=== PATIENT | female | born 1980 | race American Indian/Alaskan Native ===

== ENCOUNTER 2018-01-27 12:51 | Emergency (ER) | payer OTHER ==
--- NOTE | 2018-01-27 13:11 | EDM.PDOCBH ---
ED HPI GENERAL MEDICAL PROBLEM - General Chief Complaint: Behavioral/Psych Stated Complaint: [facility] Time Seen by Provider: 01/27/18 13:10 Source of Information: Reports: Patient History Limitations: Reports: No Limitations - History of Present Illness INITIAL COMMENTS - FREE TEXT/NARRATIVE: 37-year-old [place] female arrives in the ED per ambulance. She is from [facility] and mandatory ambulance intercepted with [facility] to bring her to the hospital. She has a history of extensive substance abuse and apparently the history suggests recent use of methamphetamines. Unclear when this may have occurred last. She presented with inspiratory stridor and agitation difficulty breathing is associated was choking. Paramedics administered Versed 4 mg in total as well as 2 mg of Ativan without gaining any control of her bizarre behavior. They could hardly hold her on the cot. She was never verbal since the time she was picked up. She seemed to indicate that she was suffocating or suffering severe respiratory distress. There is no history to suggest possible inhalational injury to her airway. However without her being able to verbalize it's unclear what has happened to her transpired. Her behavior is extremely bizarre and she is extremely agitated and apprehensive. Found the only way to bring control to the situation was to provide adequate sedation with etomidate 0.3 mg/kg IV. Weight is estimated to be 75 kg. She was also given Versed 4 mg IV. This allowed us to intubate her with a 7-1/2 ET tube at 23 cm at the corner of her lip. There is good air entry to both lung painting and Biometry revealed it to be normal. She was subsequently then placed on a ventilator with FiO2 of 50% tidal volume of 450 rate of 12. No PEEP. Plan portable chest x-ray CT had to be done routine labs to be collected to include urine drug screen and ethanol levels. Onset: Today, Unknown/Unsure Onset Date: 01/27/18 Duration: Hour(s): Location: Reports: Chest (Severe respiratory difficulties), Generalized ( Agitation not able to verbalize.) Quality: Reports: Other Severity: Severe (Bizarre behavior) Improves with: Reports: None Worsens with: Reports: None Context: Reports: Other (Bizarre behavior suspect to be due to polysubstance abuse particularly methamphetamines.). Denies: Activity, Exercise, Lifting, Sick Contact, Trauma Associated Symptoms: Reports: Confusion, Other (Severe inspiratory stridor) Treatments [employer] INSPECTOR: Reports: Other (see below) (Patient received Versed 4 mg by paramedics and 2 mg of Ativan without any improvement in her respiratory distress or level of agitation.) - Related Data Allergies Allergy/AdvReac Type Severity Reaction Status Date / Time No Known Allergies Allergy Verified 12/29/15 10:25 Past Medical History - Past Health History Medical/Surgical History: Denies Medical/Surgical History [employer] History: Reports: Psychiatric History: Reports: Depression, Suicide Attempt Other Psychiatric History: reported that she takes sleeping pills. History of depression and suicide attempt pulled from records from a hosptial stay here about 1 year ago - Infectious Disease History Other Infectious Disease History: unable to evaluate Social & Family History - Tobacco Use Smoking Status *Q: Current Every Day Smoker Years of Tobacco use: 15 Packs/Tins Daily: 1 Used Tobacco, but Quit: No Month/Year Tobacco Last Used: CURRENT - Alcohol Use Days Per Week of Alcohol Use: 1 Number of Drinks Per Day: 1 Total Drinks Per Week: 1 - Recreational Drug Use Recreational Drug Use: Yes Drug Use in Last 12 Months: Yes Recreational Drug Type: Reports: Methamphetamine - Living Situation & Occupation Living situation: Reports: Occupation: Unemployed ED ROS GENERAL - Review of Systems Review Of Systems: Unable To Obtain ED EXAM, BEHAVIORAL HEALTH - Physical Exam Exam: See Below Exam Limited By: Altered Mental Status (Absolute bizarre behavior with thrashing and sitting up of all limbs inspiratory stridor and is never been verbal. She would seem to make eye contact but fleeting.) General Appearance: Anxious, Other (Agitated) Eye Exam: Bilateral Eye: Normal Inspection Throat/Mouth: Normal Inspection, Normal Lips, Normal Oropharynx, Other Head: Atraumatic, Normocephalic Neck: Normal Inspection, Supple, Non-Tender, Full Range of Motion. No: Lymphadenopathy (L), Lymphadenopathy (R) Respiratory/Chest: Lungs Clear, Normal Breath Sounds (Exhibiting severe respiratory distress.), Respiratory Distress, Stridor (Severe inspiratory stridor due to I believe being extremely anxious as there was no evidence of upper airway narrowing. Vocal cords were approximating normally and there was no swelling.). No: Rales, Rhonchi, Wheezing Cardiovascular: Normal Peripheral Pulses, No Edema (Resting tachycardia due to being severely anxious and agitated.), No Murmur, Tachycardia GI/Abdominal: Normal Bowel Sounds, Soft, Non-Tender, No Organomegaly, No Distention, Other (Apparently was complaining that she was having abdominal pain earlier to) Back Exam: Normal Inspection, Full Range of Motion. No: CVA Tenderness (L), CVA Tenderness (R), Muscle Spasm Extremities: Normal Inspection, Normal Range of Motion, Non-Tender, No Pedal Edema Neurological: Normal Cognition, Other (Possibly actively hallucinating and so was impossible to tell since she was nonverbal.) Psychiatric: Agitated, Non-Communicative Skin Exam: Warm, Dry, Intact, Normal color, No rash Endotracheal Intubation - Endotracheal Intubation Time of Intubation: 13:00 (7.5 Swedish ET tube 23 cm at the corner of her lip.) EKG INTERPRETATION EKG Date: 01/27/18 Time: 13:12 Rhythm: Other (Sinus tachycardia at 1 10/m) Rate (Beats/Min): 110 [place]: Normal P-Wave: Present QRS: Other (There are small Q waves in V4 to V6 which are considered) ST-T: Normal QT: Normal EKG Interpretation Comments: Borderline ECG. COURSE, BEHAVIORAL HEALTH COMP - Course Vital Signs: Last Vital Signs Temp 36.9 C 01/27/18 13:00 Pulse 142 H 01/27/18 13:00 Resp 30 H 01/27/18 13:00 BP 162/112 H 01/27/18 13:00 Pulse Ox 96 01/27/18 13:00 Orders, Labs, Meds: Active Orders 24 hr Category Date Time Status EKG Documentation Completion [RC] STAT Care 01/27/18 13:07 Active RT Ventilator, Adult [RC] ASDIRECTED Care 01/27/18 14:11 Active HCG QUALITATIVE,URINE [URCHEM] Stat Lab 01/27/18 13:05 Ordered URINALYSIS W/MICROSCOPIC [UA W/MICROSCOPIC] [URIN] Stat Lab 01/27/18 13:05 Ordered Dextrose 5%-0.9% NaCl [Dextrose 5%-Normal Saline] 1,000 Med 01/27/18 13:15 Active ml IV ASDIRECTED Dextrose 5%-Lactated Ringers 1,000 ml Med 01/27/18 15:13 Active IV ONETIME Propofol [Diprivan 100 ML] 100 ml Med 01/27/18 13:45 Active IV TITRATE Sodium Chloride 0.9% [Normal Saline] 1,000 ml Med 01/27/18 14:19 Active IV ONETIME Desired Level of Sedation (RASS) [AST] ONETIME Oth 01/27/18 13:45 Ordered Medication Orders Dextrose/Sodium Chloride (Dextrose 5%-Normal Saline) 1,000 mls @ 250 mls/hr IV ASDIRECTED NYDIA Propofol (Diprivan 100 Ml) 100 mls @ 2.4 mls/hr IV TITRATE NYDIA; Protocol Last Admin: 01/27/18 13:58 Dose: 50 mcg/kg/min, 24 mls/hr Sodium Chloride (Normal Saline) 1,000 mls @ 500 mls/hr IV ONETIME ONE Stop: 01/27/18 16:18 Last Admin: 01/27/18 13:08 Dose: 500 mls/hr Dextrose/Lactated Ringer's (Dextrose 5%-Lactated Ringers) 1,000 mls @ 150 mls/ hr IV ONETIME ONE Stop: 01/27/18 21:52 Last Admin: 01/27/18 15:24 Dose: 150 mls/hr Laboratory Tests 01/27/18 01/27/18 01/27/18 Range/Units 13:00 13:00 13:00 WBC 13.62 H (3.98-10.04) K/mm3 RBC 5.04 (3.98-5.22) M/mm3 Hgb 15.0 (11.2-15.7) gm/L Hct 42.3 (34.1-44.9) % MCV 83.9 (79.4-94.8) fl MCH 29.8 (25.6-32.2) pg MCHC 35.5 (32.2-35.5) g/dl RDW Std Deviation 43.0 (36.4-46.3) fL Plt Count 391 H (182-369) K/mm3 MPV 9.8 (9.4-12.3) fl Neutrophils % (Manual) 74 H (40-60) % Band Neutrophils % 3 (0-10) % Lymphocytes % (Manual) 15 L (20-40) % Atypical Lymphs % 0 % Monocytes % (Manual) 5 (2-10) % Eosinophils % (Manual) 2 (0.7-5.8) % Basophils % (Manual) 1 (0.1-1.2) Differential Comment See note Platelet Estimate Adequate RBC Morph Comment Normal PT 10.6 (8.0-13.0) SECONDS INR 0.99 Puncture Site ABG pH (7.35-7.45) ABG pCO2 (35.0-45.0) mmHg ABG pO2 (80.0-100.0) mmHg ABG HCO3 (22.0-26.0) meq/L ABG O2 Saturation (96.0-97.0) % ABG Base Excess (-2-2.0) Paras Test A-a Gradient mmHg O2 Delivery Device FiO2 (21.00-100.00) % Tidal Volume cc PEEP cmH20 Pressure Support cmH2O Sodium 138 (136-145) mEq/L Potassium 3.1 L (3.5-5.1) mEq/L Chloride 97 L (98-107) mEq/L Carbon Dioxide 22 (21-32) mEq/L Anion Gap 22.1 H (5-15) BUN 22 H (7-18) mg/dL Creatinine 1.7 H (0.55-1.02) mg/dL Est Cr Clr Drug Dosing TNP Estimated GFR (MDRD) 34 (>60) mL/min BUN/Creatinine Ratio 12.9 L (14-18) Glucose 147 H (74-106) mg/dL Calcium 9.9 (8.5-10.1) mg/dL Magnesium 1.9 (1.8-2.4) mg/dl Total Bilirubin 0.5 (0.2-1.0) mg/dL AST 98 H (15-37) U/L ALT 76 H (14-59) U/L Alkaline Phosphatase 77 (46-116) U/L CK-MB (CK-2) 6.5 H (0-3.6) ng/ml Troponin I < 0.017 (0.00-0.056) ng/mL Total Protein 9.1 H (6.4-8.2) g/dl Albumin 4.8 (3.4-5.0) g/dl Globulin 4.3 gm/dL Albumin/Globulin Ratio 1.1 (1-2) Lipase (73-393) U/L Urine Color (Yellow) Urine Appearance (Clear) Urine pH (5.0-8.0) Ur Specific [place] (1.005-1.030) Urine Protein (Negative) Urine Glucose (UA) (Negative) Urine Ketones (Negative) Urine Occult Blood (Negative) Urine Nitrite (Negative) Urine Bilirubin (Negative) Urine Urobilinogen (0.2-1.0) Ur Leukocyte Esterase (Negative) Urine RBC (0-5) /hpf Urine WBC (0-5) /hpf Ur Epithelial Cells (0-5) /hpf Amorphous Sediment (NOT SEEN) /hpf Urine Bacteria (FEW) /hpf Urine Mucus (FEW) /hpf Urine HCG, Qual (NEGATIVE) Urine Opiates Screen (NEGATIVE) Ur Buprenorphine Scrn (NEGATIVE) Ur Oxycodone Screen (NEGATIVE) Urine Methadone Screen (NEGATIVE) Ur Propoxyphene Screen (NEGATIVE) Ur Barbiturates Screen (NEGATIVE) Ur Tricyclics Screen (NEGATIVE) Ur Phencyclidine Scrn (NEGATIVE) Ur Amphetamine Screen (NEGATIVE) U Methamphetamines Scrn (NEGATIVE) U Benzodiazepines Scrn (NEGATIVE) U Cocaine Metab Screen (NEGATIVE) U Marijuana (THC) Screen (NEGATIVE) Ethyl Alcohol 0.00 (0.00) gm% 01/27/18 01/27/18 01/27/18 Range/Units 13:00 13:05 13:05 WBC (3.98-10.04) K/mm3 RBC (3.98-5.22) M/mm3 Hgb (11.2-15.7) gm/L Hct (34.1-44.9) % MCV (79.4-94.8) fl MCH (25.6-32.2) pg MCHC (32.2-35.5) g/dl RDW Std Deviation (36.4-46.3) fL Plt Count (182-369) K/mm3 MPV (9.4-12.3) fl Neutrophils % (Manual) (40-60) % Band Neutrophils % (0-10) % Lymphocytes % (Manual) (20-40) % Atypical Lymphs % % Monocytes % (Manual) (2-10) % Eosinophils % (Manual) (0.7-5.8) % Basophils % (Manual) (0.1-1.2) Differential Comment Platelet Estimate RBC Morph Comment PT (8.0-13.0) SECONDS INR Puncture Site ABG pH (7.35-7.45) ABG pCO2 (35.0-45.0) mmHg ABG pO2 (80.0-100.0) mmHg ABG HCO3 (22.0-26.0) meq/L ABG O2 Saturation (96.0-97.0) % ABG Base Excess (-2-2.0) Paras Test A-a Gradient mmHg O2 Delivery Device FiO2 (21.00-100.00) % Tidal Volume cc PEEP cmH20 Pressure Support cmH2O Sodium (136-145) mEq/L Potassium (3.5-5.1) mEq/L Chloride (98-107) mEq/L Carbon Dioxide (21-32) mEq/L Anion Gap (5-15) BUN (7-18) mg/dL Creatinine (0.55-1.02) mg/dL Est Cr Clr Drug Dosing Estimated GFR (MDRD) (>60) mL/min BUN/Creatinine Ratio (14-18) Glucose (74-106) mg/dL Calcium (8.5-10.1) mg/dL Magnesium (1.8-2.4) mg/dl Total Bilirubin (0.2-1.0) mg/dL AST (15-37) U/L ALT (14-59) U/L Alkaline Phosphatase (46-116) U/L CK-MB (CK-2) (0-3.6) ng/ml Troponin I (0.00-0.056) ng/mL Total Protein (6.4-8.2) g/dl Albumin (3.4-5.0) g/dl Globulin gm/dL Albumin/Globulin Ratio (1-2) Lipase 85 (73-393) U/L Urine Color Dark yellow (Yellow) Urine Appearance Cloudy H (Clear) Urine pH 5.5 (5.0-8.0) Ur Specific [place] > or = 1.030 (1.005-1.030) Urine Protein 2+ H (Negative) Urine Glucose (UA) Negative (Negative) Urine Ketones Trace H (Negative) Urine Occult Blood 1+ H (Negative) Urine Nitrite Negative (Negative) Urine Bilirubin 2+ H (Negative) Urine Urobilinogen 1.0 (0.2-1.0) Ur Leukocyte Esterase Trace H (Negative) Urine RBC 0-5 (0-5) /hpf Urine WBC 30-40 H (0-5) /hpf Ur Epithelial Cells 10-20 H (0-5) /hpf Amorphous Sediment Moderate H (NOT SEEN) /hpf Urine Bacteria Many H (FEW) /hpf Urine Mucus Few (FEW) /hpf Urine HCG, Qual (NEGATIVE) Urine Opiates Screen Negative (NEGATIVE) Ur Buprenorphine Scrn Negative (NEGATIVE) Ur Oxycodone Screen Negative (NEGATIVE) Urine Methadone Screen Negative (NEGATIVE) Ur Propoxyphene Screen Negative (NEGATIVE) Ur Barbiturates Screen Negative (NEGATIVE) Ur Tricyclics Screen Negative (NEGATIVE) Ur Phencyclidine Scrn Negative (NEGATIVE) Ur Amphetamine Screen Presumptive positive H (NEGATIVE) U Methamphetamines Scrn Presumptive positive H (NEGATIVE) U Benzodiazepines Scrn Negative (NEGATIVE) U Cocaine Metab Screen Negative (NEGATIVE) U Marijuana (THC) Screen Negative (NEGATIVE) Ethyl Alcohol (0.00) gm% 01/27/18 01/27/18 01/27/18 Range/Units 13:05 13:15 14:20 WBC (3.98-10.04) K/mm3 RBC (3.98-5.22) M/mm3 Hgb (11.2-15.7) gm/L Hct (34.1-44.9) % MCV (79.4-94.8) fl MCH (25.6-32.2) pg MCHC (32.2-35.5) g/dl RDW Std Deviation (36.4-46.3) fL Plt Count (182-369) K/mm3 MPV (9.4-12.3) fl Neutrophils % (Manual) (40-60) % Band Neutrophils % (0-10) % Lymphocytes % (Manual) (20-40) % Atypical Lymphs % % Monocytes % (Manual) (2-10) % Eosinophils % (Manual) (0.7-5.8) % Basophils % (Manual) (0.1-1.2) Differential Comment Platelet Estimate RBC Morph Comment PT (8.0-13.0) SECONDS INR Puncture Site Rt radial Rt radial ABG pH 7.44 7.42 (7.35-7.45) ABG pCO2 31.1 L 31.6 L (35.0-45.0) mmHg ABG pO2 221.0 H* 105.0 H (80.0-100.0) mmHg ABG HCO3 20.6 L 20.3 L (22.0-26.0) meq/L ABG O2 Saturation 99.8 H 98.4 H (96.0-97.0) % ABG Base Excess -2.2 L -2.7 L (-2-2.0) Paras Test Positive Positive A-a Gradient mmHg O2 Delivery Device Ventilator Ventilator FiO2 0.00 L 30.00 (21.00-100.00) % Tidal Volume 450.0 450.0 cc PEEP 0.0 0.0 cmH20 Pressure Support 0.0 cmH2O Sodium (136-145) mEq/L Potassium (3.5-5.1) mEq/L Chloride (98-107) mEq/L Carbon Dioxide (21-32) mEq/L Anion Gap (5-15) BUN (7-18) mg/dL Creatinine (0.55-1.02) mg/dL Est Cr Clr Drug Dosing Estimated GFR (MDRD) (>60) mL/min BUN/Creatinine Ratio (14-18) Glucose (74-106) mg/dL Calcium (8.5-10.1) mg/dL Magnesium (1.8-2.4) mg/dl Total Bilirubin (0.2-1.0) mg/dL AST (15-37) U/L ALT (14-59) U/L Alkaline Phosphatase (46-116) U/L CK-MB (CK-2) (0-3.6) ng/ml Troponin I (0.00-0.056) ng/mL Total Protein (6.4-8.2) g/dl Albumin (3.4-5.0) g/dl Globulin gm/dL Albumin/Globulin Ratio (1-2) Lipase (73-393) U/L Urine Color (Yellow) Urine Appearance (Clear) Urine pH (5.0-8.0) Ur Specific [place] (1.005-1.030) Urine Protein (Negative) Urine Glucose (UA) (Negative) Urine Ketones (Negative) Urine Occult Blood (Negative) Urine Nitrite (Negative) Urine Bilirubin (Negative) Urine Urobilinogen (0.2-1.0) Ur Leukocyte Esterase (Negative) Urine RBC (0-5) /hpf Urine WBC (0-5) /hpf Ur Epithelial Cells (0-5) /hpf Amorphous Sediment (NOT SEEN) /hpf Urine Bacteria (FEW) /hpf Urine Mucus (FEW) /hpf Urine HCG, Qual Negative (NEGATIVE) Urine Opiates Screen (NEGATIVE) Ur Buprenorphine Scrn (NEGATIVE) Ur Oxycodone Screen (NEGATIVE) Urine Methadone Screen (NEGATIVE) Ur Propoxyphene Screen (NEGATIVE) Ur Barbiturates Screen (NEGATIVE) Ur Tricyclics Screen (NEGATIVE) Ur Phencyclidine Scrn (NEGATIVE) Ur Amphetamine Screen (NEGATIVE) U Methamphetamines Scrn (NEGATIVE) U Benzodiazepines Scrn (NEGATIVE) U Cocaine Metab Screen (NEGATIVE) U Marijuana (THC) Screen (NEGATIVE) Ethyl Alcohol (0.00) gm% 01/27/18 Range/Units 15:10 WBC (3.98-10.04) K/mm3 RBC (3.98-5.22) M/mm3 Hgb (11.2-15.7) gm/L Hct (34.1-44.9) % MCV (79.4-94.8) fl MCH (25.6-32.2) pg MCHC (32.2-35.5) g/dl RDW Std Deviation (36.4-46.3) fL Plt Count (182-369) K/mm3 MPV (9.4-12.3) fl Neutrophils % (Manual) (40-60) % Band Neutrophils % (0-10) % Lymphocytes % (Manual) (20-40) % Atypical Lymphs % % Monocytes % (Manual) (2-10) % Eosinophils % (Manual) (0.7-5.8) % Basophils % (Manual) (0.1-1.2) Differential Comment Platelet Estimate RBC Morph Comment PT (8.0-13.0) SECONDS INR Puncture Site Rt radial ABG pH 7.35 (7.35-7.45) ABG pCO2 40.1 (35.0-45.0) mmHg ABG pO2 149.0 H (80.0-100.0) mmHg ABG HCO3 21.8 L (22.0-26.0) meq/L ABG O2 Saturation 99.0 H (96.0-97.0) % ABG Base Excess -3.0 L (-2-2.0) Paras Test A-a Gradient 57 mmHg O2 Delivery Device Ventilator FiO2 40.00 (21.00-100.00) % Tidal Volume 500.0 cc PEEP 5.0 cmH20 Pressure Support cmH2O Sodium (136-145) mEq/L Potassium (3.5-5.1) mEq/L Chloride (98-107) mEq/L Carbon Dioxide (21-32) mEq/L Anion Gap (5-15) BUN (7-18) mg/dL Creatinine (0.55-1.02) mg/dL Est Cr Clr Drug Dosing Estimated GFR (MDRD) (>60) mL/min BUN/Creatinine Ratio (14-18) Glucose (74-106) mg/dL Calcium (8.5-10.1) mg/dL Magnesium (1.8-2.4) mg/dl Total Bilirubin (0.2-1.0) mg/dL AST (15-37) U/L ALT (14-59) U/L Alkaline Phosphatase (46-116) U/L CK-MB (CK-2) (0-3.6) ng/ml Troponin I (0.00-0.056) ng/mL Total Protein (6.4-8.2) g/dl Albumin (3.4-5.0) g/dl Globulin gm/dL Albumin/Globulin Ratio (1-2) Lipase (73-393) U/L Urine Color (Yellow) Urine Appearance (Clear) Urine pH (5.0-8.0) Ur Specific [place] (1.005-1.030) Urine Protein (Negative) Urine Glucose (UA) (Negative) Urine Ketones (Negative) Urine Occult Blood (Negative) Urine Nitrite (Negative) Urine Bilirubin (Negative) Urine Urobilinogen (0.2-1.0) Ur Leukocyte Esterase (Negative) Urine RBC (0-5) /hpf Urine WBC (0-5) /hpf Ur Epithelial Cells (0-5) /hpf Amorphous Sediment (NOT SEEN) /hpf Urine Bacteria (FEW) /hpf Urine Mucus (FEW) /hpf Urine HCG, Qual (NEGATIVE) Urine Opiates Screen (NEGATIVE) Ur Buprenorphine Scrn (NEGATIVE) Ur Oxycodone Screen (NEGATIVE) Urine Methadone Screen (NEGATIVE) Ur Propoxyphene Screen (NEGATIVE) Ur Barbiturates Screen (NEGATIVE) Ur Tricyclics Screen (NEGATIVE) Ur Phencyclidine Scrn (NEGATIVE) Ur Amphetamine Screen (NEGATIVE) U Methamphetamines Scrn (NEGATIVE) U Benzodiazepines Scrn (NEGATIVE) U Cocaine Metab Screen (NEGATIVE) U Marijuana (THC) Screen (NEGATIVE) Ethyl Alcohol (0.00) gm% Medications Generic Name Dose Route Start Last Admin Trade Name Neftaliq PRN Reason Stop Dose Admin Dextrose/Sodium Chloride 1,000 mls @ 250 mls/hr 01/27/18 13:15 Dextrose 5%-Normal Saline IV ASDIRECTED NYDIA Propofol 100 mls @ 2.4 mls/hr 01/27/18 13:45 01/27/18 13:58 Diprivan 100 Ml IV 50 mcg/kg/min TITRATE NYDIA 24 mls/hr Administration Protocol 5 MCG/KG/MIN Sodium Chloride 1,000 mls @ 500 mls/hr 01/27/18 14:19 01/27/18 13:08 Normal Saline IV 01/27/18 16:18 500 mls/hr ONETIME ONE Administration Dextrose/Lactated Ringer's 1,000 mls @ 150 mls/hr 01/27/18 15:13 01/27/18 15: 24 Dextrose 5%-Lactated Ringers IV 01/27/18 21:52 150 mls/hr ONETIME ONE Administration Discontinued Medications Generic Name Dose Route Start Last Admin Trade Name Kaley PRN Reason Stop Dose Admin Etomidate 20 mg 01/27/18 13:46 01/27/18 12:57 Amidate IVPUSH 01/27/18 13:47 20 mg ONETIME ONE Administration Dextrose/Lactated Ringer's 1,000 mls @ 150 mls/hr 01/27/18 15:15 Dextrose 5%-Lactated Ringers IV ASDIRECTED NYDIA Midazolam HCl 4 mg 01/27/18 13:47 01/27/18 12:56 Versed 1 Mg/Ml IVPUSH 01/27/18 13:48 4 mg ONETIME ONE Administration Vecuronium [place] 8 mg 01/27/18 13:48 01/27/18 13:01 Vecuronium IVPUSH 01/27/18 13:49 8 mg ONETIME ONE Administration Vecuronium [place] 8 mg 01/27/18 14:21 01/27/18 14:10 Vecuronium IVPUSH 01/27/18 14:22 8 mg ONETIME ONE Administration Vecuronium [place] 8 mg 01/27/18 15:23 01/27/18 15:30 Vecuronium IVPUSH 01/27/18 15:24 8 mg ONETIME ONE Administration Re-Assessment/Re-Exam: Patient remains paralyzed with vecuronium having received 8 mg. She is on propofol drip currently 1 mg/kg estimated weight at 75 kg. Soup provide satisfactory sedation. Initial blood gases reveal a pH of 7.44 with a PCO2 of 31. Rate will be decreased from 12 breast per minute to 10 breaths per minute. PO2 was 221 FiO2 will be reduced from 50% to 30%. Chest x-ray done is within normal limits showing the ET tube to be 3 cm above the elli. It was therefore further introduced another centimeter and secured. Good air entry to both lung painting appreciated after this. CT head has been completed and is within normal limits showing no intracranial bleeding or mass effect. Appears that her bizarre behavior currently is due to some form of substance or substances onboard such as methamphetamines and other hallucinogenic's. Plan will be to have her admitted to the intensive care unit to allow the substances to dissipate from her body prior prior to extubating her. Labs are pending. Re-Assessment/Re-Exam Date: 01/27/18 (Labs are back. White count is 13.6-74% neutrophils and 3% bands reported. Hemoglobin is 15.0 with hematocrit of 42.3. Platelet count is 391,000. PT is 10.6 with an INR of 0.99. Sodium is 138 with potassium slightly low at 3.1. His chloride is 97 with a bicarbonate 22. Anion gap is elevated at 22.1 BUN is 22 creatinine is 1.7. Glucose is 147 calcium is 9.9. Magnesium is 1.9 bilirubin is 0.5. AST is 98 with ALT of 76. Both elevated CK-MB fraction is elevated at 6.5 troponin I is less than 0.017 however. Lipase normal at 85. Urine drug screen is positive for amphetamines and methamphetamines. Blood alcohol is 0. Lactic acid is pending.) Re-Assessment/Re-Exam Time: 15:10 (Second blood gases revealed a pH of 7.42. PCO2 was essentially unchanged at 31.6 PaO2 was 105. Changes made to ventilator settings were an increase of the FiO2 to 40% from 30%. Rate was reduced from 10 breast per minute to 8 breaths per minute. People 5 was added. Tylenol volume is now 500. Case discussed with our hospitalist and she declines admission. Patient's family wishes her to be transferred to [facility]. I will try makeup arrangements in this regard.) Medical Clearance: 01/27/18 15:[address] Crawford -- belt press operator at [facility] in [place] and he has accepted care of this patient. The ground crew is apparently not available for ambulance transport. Patient will thus be flown by helicopter to [place]. Last blood gas revealed a pH of 7.35. PCO2 was 40.1 E02 was 149. Only change made to vent setting was an increase in rate from 9/2/10 breaths per minute. Tidal volume remains at 500. Mother is here now and indicates that the fellow that Rosangela is living with intermittently will tire off and abuser. He injects her with methamphetamine as she is scared of needles. She does have a induration needle dwain on her left lateral antecubital fossa that appears to be a recent injection site. 01/27/18 16:02 . Patient's current ventilator settings are FiO2 of 40%. Tidal volume of 500. PEEP of 5 rate of 10 breaths per minute. Heart rate is 1 1/m. BP is 135/90. Patient is currently receiving max dose of propofol 50 mcg/m. She has been paralyzed with vecuronium 8 mg on 3 occasions during her stay in the ED. She has required intermittent small doses of Versed 1-2 mg to provide further sedation. Departure - Departure Time of Disposition: 16:06 Disposition: DC/Tfer to Acute Hospital 02 Condition: Serious Clinical Impression: Polysubstance abuse, Bizarre behavior, Recurrent seizures, Respiratory distress determined by examination Altered mental status Qualifiers: Coma depth: [place] coma 13-15 Coma timing: at arrival to emergency department - Discharge Information Instructions: Stimulant Use Disorder-Methamphetamines Referrals: PCP,None [Primary Care Provider] - Forms: ED Department Discharge Additional Instructions: Patient transferred to [facility] in [place] where she has been admitted in the past and medical records are available. - My Orders Last 24 Hours: My Active Orders 01/27/18 13:05 HCG QUALITATIVE,URINE [URCHEM] Stat URINALYSIS W/MICROSCOPIC [UA W/MICROSCOPIC] [URIN] Stat 01/27/18 13:07 EKG Documentation Completion [RC] STAT 01/27/18 13:15 Dextrose 5%-0.9% NaCl [Dextrose 5%-Normal Saline] 1,000 ml IV ASDIRECTED 01/27/18 13:45 Propofol [Diprivan 100 ML] 100 ml IV TITRATE Desired Level of Sedation (RASS) [AST] ONETIME 01/27/18 14:11 RT Ventilator, Adult [RC] ASDIRECTED 01/27/18 14:19 Sodium Chloride 0.9% [Normal Saline] 1,000 ml IV ONETIME 01/27/18 15:13 Dextrose 5%-Lactated Ringers 1,000 ml IV ONETIME - Assessment/Plan Last 24 Hours: My Active Orders 01/27/18 13:05 HCG QUALITATIVE,URINE [URCHEM] Stat URINALYSIS W/MICROSCOPIC [UA W/MICROSCOPIC] [URIN] Stat 01/27/18 13:07 EKG Documentation Completion [RC] STAT 01/27/18 13:15 Dextrose 5%-0.9% NaCl [Dextrose 5%-Normal Saline] 1,000 ml IV ASDIRECTED 01/27/18 13:45 Propofol [Diprivan 100 ML] 100 ml IV TITRATE Desired Level of Sedation (RASS) [AST] ONETIME 01/27/18 14:11 RT Ventilator, Adult [RC] ASDIRECTED 01/27/18 14:19 Sodium Chloride 0.9% [Normal Saline] 1,000 ml IV ONETIME 01/27/18 15:13 Dextrose 5%-Lactated Ringers 1,000 ml IV ONETIME
[2018-01-27] MEDS ORDERED: Dextrose 5%-0.9% NaCl 1,000 ML IV SCH (13:15)
[2018-01-27] MEDS ORDERED: Etomidate 2 MG/ML 20 ML SDV IVPUSH ONE (13:46)
[2018-01-27] MEDS ORDERED: Midazolam 1 MG/ML 2 ML SDV IVPUSH ONE (13:47)
--- NOTE | 2018-01-27 13:52 | CT ---
Head CT Technique: Multiple axial sections through the brain were obtained. Intravenous contrast was not utilized. Comparison: No previous intracranial imaging. Findings: Ventricles along with basal cisterns and sulci over the convexities are within normal limits for the patient's age. No abnormal parenchymal densities are seen. No evidence of intracranial hemorrhage. No midline shift or mass effect is seen. Bone window settings were reviewed which shows mild mucosal thickening within the ethmoid sinuses. Air-fluid level and mucosal thickening is seen within the sphenoid sinus. No acute calvarial abnormality is seen. Impression: 1. Mild sinus findings. Given the air-fluid level, difficult to exclude mild sinusitis. 2. Nothing acute is otherwise seen on noncontrast head CT exam. Diagnostic code #3
[2018-01-27] MEDS ORDERED: Sodium Chloride 0.9% 1,000 ML IV ONE (14:19)
[2018-01-27 15:10] VITALS: BP 162/112
[2018-01-27] MEDS ORDERED: Dextrose 5%-Lactated Ringers 1,000 ML IV ONE (15:13)
[2018-01-27] MEDS ORDERED: Dextrose 5%-Lactated Ringers 1,000 ML IV SCH (15:15)
--- NOTE | 2018-01-27 15:16 | CR ---
Chest: Portable view of the chest was obtained. Comparison: Previous chest x-ray of 12/29/15. Endotracheal tube is noted with tip lying at the lower level of the clavicles. Heart size and mediastinum are normal. Lungs are clear. Bony structures are grossly intact. Evidence of previous cholecystectomy. Impression: 1. Tip of endotracheal tube at the lower level of the clavicles. 2. Nothing acute is otherwise seen on frontal chest x-ray. Diagnostic code #2
== END 2018-01-27 17:28 ==
LOC: JD.ED 12:51
DX: F19.10 Other psychoactive substance abuse, uncomplicated (principal); F32.9 Major depressive disorder, single episode, unspecified; R07.89 Other chest pain; F17.210 Nicotine dependence, cigarettes, uncomplicated; G40.909 Epilepsy, unspecified, not intractable, without status epilepticus; R06.03 Acute respiratory distress; R41.82 Altered mental status, unspecified
CPT/HCPCS: 31500; 36415; 36600; 51702; 70450; 71045; 80053; 80306; 81001; 81025; 82553; 82803; 83690; 83735; 84484; 85025; 85610; 93005; 96361; 96365; 96366; 96375; 96376; 99285; G0480; J2250; J7040; J7042; J3490

== ENCOUNTER 2018-05-18 15:53 | Emergency (ER) | payer OTHER ==
--- NOTE | 2018-05-18 16:22 | EDM.PDOC ---
ED HPI GENERAL MEDICAL PROBLEM - General Chief Complaint: Drug or Alcohol Abuse Stated Complaint: [facility] Time Seen by Provider: 05/18/18 16:22 Source of Information: Reports: Patient, EMS Notes Reviewed History Limitations: Reports: Altered Mental Status - History of Present Illness INITIAL COMMENTS - FREE TEXT/NARRATIVE: 37-year-old female arrives from [place] per ambulance. She states she last used methamphetamines intravenously about 2:00 today. This would be 1:00 are time. She used the left antecubital fossa. She states his made her feel very uncomfortable with elevated tach heart rate agitation and restlessness. 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 She denies any recent alcohol use. On initial assessment she is alert she is oriented but she is agitated and restless. She was not given any medications en route to the hospital from [place]. She is currently on amoxicillin for a sinus infection. On the other medication she uses as an antidepressant once daily Onset: Today Onset Date: 05/18/18 Onset Time: 13:00 Duration: Hour(s): (Intravenous use of methamphetamines left antecubital fossa) Location: Reports: Generalized (Generalized restlessness and agitation.) Quality: Reports: Other Severity: Moderate (Restlessness and agitation) Improves with: Reports: None Worsens with: Reports: None Context: Reports: Other (Intravenous methamphetamine injection.). Denies: Activity, Exercise, Lifting, Sick Contact, Trauma Associated Symptoms: Reports: Loss of Appetite, Nausea/Vomiting, Shortness of Breath, Other. Denies: Confusion, Chest Pain, Cough, cough w sputum, Diaphoresis, Fever/Chills, Headaches, Malaise, Rash, Seizure, Syncope Treatments [employer]: Reports: Other (see below) (Palpitations none.) - Related Data Allergies Allergy/AdvReac Type Severity Reaction Status Date / Time No Known Allergies Allergy Verified 05/18/18 16:06 Home Meds: Home Meds Amoxicillin 500 mg PO TID 05/18/18 [History] Escitalopram [Lexapro] 10 mg PO DAILY 05/18/18 [History] Past Medical History - Past Health History Medical/Surgical History: Denies Medical/Surgical History Genitourinary History: Reports: UTI, Recurrent [employer] 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 History of depression and suicide attempt pulled from records from a hosptial stay here about 1 year ago - Infectious Disease History Other Infectious Disease History: unable to evaluate - Past Surgical History Female Surgical History: Reports: Section Social & Family History - Tobacco Use Smoking Status *Q: Current Every Day Smoker Years of Tobacco use: 26 Packs/Tins Daily: 1 - Caffeine Use Caffeine Use: Reports: Energy Drinks, Soda - Recreational Drug Use Recreational Drug Type: Reports: Methamphetamine - Living Situation & Occupation Living situation: Reports: Occupation: Unemployed ED ROS GENERAL - Review of Systems Review Of Systems: See Below Constitutional: Reports: Weakness, Fatigue, Decreased Appetite. Denies: Fever, Chills HEENT: Reports: No Symptoms Respiratory: Reports: Shortness of Breath Cardiovascular: Reports: Palpitations. Denies: Dyspnea on Exertion, Edema, Lightheadedness, Orthopnea Endocrine: Reports: No Symptoms GI/Abdominal: Reports: Decreased Appetite. Denies: Abdominal Pain, Anorexia, Distension, Flatus, Hematemesis, Hematochezia, Melena, Mucous in Stool, Nausea, Stool Incontinence, Vomiting, Other : Reports: No Symptoms Musculoskeletal: Reports: Back Pain Skin: Reports: Other (Puncture wounds to antecubital fossa's. They appear to be healed on the right antecubital fossa but there is a new injection site left antecubital fossa.) Neurological: Reports: Dizziness, Headache, Other. Denies: Confusion, Pre- Existing Deficit, Seizure, Syncope, Tremors, Trouble Speaking, Difficulty Walking, Weakness Psychiatric: Reports: Agitation, Anxiety (Restless and agitated), Mood Lability (Restlessness), Other Hematologic/Lymphatic: Reports: No Symptoms Immunologic: Reports: No Symptoms - Physical Exam Exam: See Below Exam Limited By: Altered Mental Status General Appearance: Anxious, Other (Moderately agitated and restless almost akathisia-like.) Eye Exam: Bilateral Eye: Abnormal Pupil (7 mm bilaterally), PERRL (No nystagmus) Throat/Mouth: Normal Inspection, Normal Lips, Normal Oropharynx, Other Head Exam: Atraumatic, Normocephalic (Tongue is dry and coated) Neck: Normal Inspection, Supple, Non-Tender, Full Range of Motion. No: Lymphadenopathy (L) Respiratory/Chest: No Respiratory Distress, Lungs Clear, Normal Breath Sounds, No Accessory Muscle Use Cardiovascular: Normal Peripheral Pulses, No Edema, No Gallop, No Murmur, No Rub , Tachycardia (Tachycardia at rest 1 20/m) GI/Abdominal: Normal Bowel Sounds, Soft, Non-Tender, No Organomegaly, No Abnormal Bruit, No Mass Neuro Exam (Abbreviated): Alert, Oriented, CN II-XII Intact, Normal Cognition, No Motor/Sensory Deficits Back Exam: Normal Inspection, Full Range of Motion Extremities: Normal Range of Motion, Non-Tender, No Pedal Edema, Other (IV is in the left forearm. There is a puncture wound left antecubital fossa from IV drug use.) Psychiatric: Anxious Skin Exam: Warm, Dry, Intact, Normal Color, No Rash EKG INTERPRETATION EKG Date: 05/18/18 Time: 17:05 Rhythm: NSR Rate (Beats/Min): 100 [place]: LAD-Left [place] Deviation (-19 degrees) P-Wave: Enlarged (consider Lt atrial hypertrophy.) QRS: Other (Early R-wave transition. Consider septal hypertrophy pattern. There is a left ventricular hypertrophy pattern as well with prominent R-wave in lead 1. Her near Q waves in leads 3 and aVF. Consider old inferior wall myocardial infarction.) ST-T: Other (T-wave flattening in leads 3 and aVF.) QT: Prolonged (QT is mildly prolonged.) EKG Interpretation Comments: Abnormal ECG. Course - Vital Signs Last Recorded V/S: Last Vital Signs Temp 36.1 C 05/18/18 18:22 Pulse 88 05/18/18 18:22 Resp 17 05/18/18 18:22 BP 98/70 05/18/18 18:22 Pulse Ox 97 05/18/18 18:22 - Orders/Labs/Meds Orders: Active Orders 24 hr Category Date Time Status EKG Documentation Completion [RC] STAT Care 05/18/18 16:37 Active Insert [place]regon Catheter [Insert Urinary Catheter] [OM.PC] Care 05/18/18 17:15 Ordered Stat Oxygen Therapy [RC] ASDIRECTED Care 05/18/18 16:38 Active Urinary Catheter Assessment [RC] ASDIRECTED Care 05/18/18 17:15 Active DRUG SCREEN, URINE [URCHEM] Stat Lab 05/18/18 17:20 Ordered Dextrose 5%-0.9% NaCl [Dextrose 5%-Normal Saline] 1,000 Med 05/18/18 16:45 Active ml IV ASDIRECTED Medication Orders Dextrose/Sodium Chloride (Dextrose 5%-Normal Saline) 1,000 mls @ 500 mls/hr IV ASDIRECTED NYDIA Last Admin: 05/18/18 16:54 Dose: 500 mls/hr Labs: Laboratory Tests 05/18/18 05/18/18 05/18/18 Range/Units 16:54 16:54 16:54 WBC 10.93 H (3.98-10.04) K/mm3 RBC 4.50 (3.98-5.22) M/mm3 Hgb 13.0 (11.2-15.7) gm/L Hct 39.0 (34.1-44.9) % MCV 86.7 (79.4-94.8) fl MCH 28.9 (25.6-32.2) pg MCHC 33.3 (32.2-35.5) g/dl RDW Std Deviation 48.5 H (36.4-46.3) fL Plt Count 437 H (182-369) K/mm3 MPV 9.5 (9.4-12.3) fl Neutrophils % (Manual) 66 H (40-60) % Band Neutrophils % 0 (0-10) % Lymphocytes % (Manual) 23 (20-40) % Atypical Lymphs % 0 % Monocytes % (Manual) 10 (2-10) % Eosinophils % (Manual) 1 (0.7-5.8) % Basophils % (Manual) 0 L (0.1-1.2) Platelet Estimate Adequate Plt Morphology Comment Normal RBC Morph Comment Normal Sodium 139 (136-145) mEq/L Potassium 2.9 L (3.5-5.1) mEq/L Chloride 101 (98-107) mEq/L Carbon Dioxide 25 (21-32) mEq/L Anion Gap 15.9 H (5-15) BUN 17 (7-18) mg/dL Creatinine 0.9 (0.55-1.02) mg/dL Est Cr Clr Drug Dosing 82.42 mL/min Estimated GFR (MDRD) > 60 (>60) mL/min BUN/Creatinine Ratio 18.9 H (14-18) Glucose 86 (74-106) mg/dL Calcium 9.3 (8.5-10.1) mg/dL Magnesium 2.0 (1.8-2.4) mg/dl Total Bilirubin 0.5 (0.2-1.0) mg/dL AST 102 H (15-37) U/L ALT 75 H (14-59) U/L Alkaline Phosphatase 75 (46-116) U/L CK-MB (CK-2) 5.8 H (0-3.6) ng/ml Troponin I < 0.017 (0.00-0.056) ng/mL Total Protein 8.8 H (6.4-8.2) g/dl Albumin 4.3 (3.4-5.0) g/dl Globulin 4.5 gm/dL Albumin/Globulin Ratio 1.0 (1-2) HCG, Qual Negative (NEGATIVE) Urine Opiates Screen (NEGATIVE) Ur Buprenorphine Scrn (NEGATIVE) Ur Oxycodone Screen (NEGATIVE) Urine Methadone Screen (NEGATIVE) Ur Propoxyphene Screen (NEGATIVE) Ur Barbiturates Screen (NEGATIVE) Ur Tricyclics Screen (NEGATIVE) Ur Phencyclidine Scrn (NEGATIVE) Ur Amphetamine Screen (NEGATIVE) U Methamphetamines Scrn (NEGATIVE) U Benzodiazepines Scrn (NEGATIVE) U Cocaine Metab Screen (NEGATIVE) U Marijuana (THC) Screen (NEGATIVE) Ethyl Alcohol 0.00 (0.00) gm% /18/18 Range/Units 17:20 WBC (3.98-10.04) K/mm3 RBC (3.98-5.22) M/mm3 Hgb (11.2-15.7) gm/L Hct (34.1-44.9) % MCV (79.4-94.8) fl MCH (25.6-32.2) pg MCHC (32.2-35.5) g/dl RDW Std Deviation (36.4-46.3) fL Plt Count (182-369) K/mm3 MPV (9.4-12.3) fl Neutrophils % (Manual) (40-60) % Band Neutrophils % (0-10) % Lymphocytes % (Manual) (20-40) % Atypical Lymphs % % Monocytes % (Manual) (2-10) % Eosinophils % (Manual) (0.7-5.8) % Basophils % (Manual) (0.1-1.2) Platelet Estimate Plt Morphology Comment RBC Morph Comment Sodium (136-145) mEq/L Potassium (3.5-5.1) mEq/L Chloride (98-107) mEq/L Carbon Dioxide (21-32) mEq/L Anion Gap (5-15) BUN (7-18) mg/dL Creatinine (0.55-1.02) mg/dL Est Cr Clr Drug Dosing mL/min Estimated GFR (MDRD) (>60) mL/min BUN/Creatinine Ratio (14-18) Glucose (74-106) mg/dL Calcium (8.5-10.1) mg/dL Magnesium (1.8-2.4) mg/dl Total Bilirubin (0.2-1.0) mg/dL AST (15-37) U/L ALT (14-59) U/L Alkaline Phosphatase (46-116) U/L CK-MB (CK-2) (0-3.6) ng/ml Troponin I (0.00-0.056) ng/mL Total Protein (6.4-8.2) g/dl Albumin (3.4-5.0) g/dl Globulin gm/dL Albumin/Globulin Ratio (1-2) HCG, Qual (NEGATIVE) Urine Opiates Screen Negative (NEGATIVE) Ur Buprenorphine Scrn Negative (NEGATIVE) Ur Oxycodone Screen Negative (NEGATIVE) Urine Methadone Screen Negative (NEGATIVE) Ur Propoxyphene Screen Negative (NEGATIVE) Ur Barbiturates Screen Negative (NEGATIVE) Ur Tricyclics Screen Negative (NEGATIVE) Ur Phencyclidine Scrn Negative (NEGATIVE) Ur Amphetamine Screen Presumptive positive H (NEGATIVE) U Methamphetamines Scrn Presumptive positive H (NEGATIVE) U Benzodiazepines Scrn Negative (NEGATIVE) U Cocaine Metab Screen Negative (NEGATIVE) U Marijuana (THC) Screen Negative (NEGATIVE) Ethyl Alcohol (0.00) gm% Meds: Medications Generic Name Dose Route Start Last Admin Trade Name Freq PRN Reason Stop Dose Admin Dextrose/Sodium Chloride 1,000 mls @ 500 mls/hr 05/18/18 16:45 05/18/18 16:54 Dextrose 5%-Normal Saline IV 500 mls/hr ASDIRECTED NYDIA Administration Discontinued Medications Generic Name Dose Route Start Last Admin Trade Name Freq PRN Reason Stop Dose Admin Potassium Chloride 10 meq/ 100 mls @ 100 mls/hr 05/18/18 18:01 05/18/18 18:13 Premix IV 05/18/18 19:00 100 mls/hr ONETIME ONE Administration Lorazepam 2 mg 05/18/18 16:37 05/18/18 16:53 Ativan IVPUSH 05/18/18 16:38 2 mg ONETIME ONE Administration - Radiology Interpretation Free Text/Narrative:: 37-year-old female [place] presents the ED after intravenous methamphetamine use. She arrives feeling agitated and restless. She just got out of rehabilitation 2 days ago for methamphetamine addiction and treatment. She is feeling restless and agitated and has some degree of akathisia on initial exam. She can answer all questions appropriately. She used her left antecubital fossa to give her self methamphetamine injection. Not sure how much she gave. She has a resting tachycardia 120/m. plan ECG. Routine labs. Urine drug screen. Blood alcohol level. Serum test. IV will be D5 normal saline at open as she has not ate or drank for 2 days. Given Ativan 2 mg IV for her agitation and restlessness. Other than her restlessness and agitation she appears to be no somatic significant distress. - Re-Assessments/Exams Free Text/Narrative Re-Assessment/Exam: 05/18/18 17:58 patient is much improved and able to rest since receiving the Ativan IV. 05/18/18 18:00 Lab reveals a white count of 10.93 with 66% neutrophils and no bands. Hemoglobin is 13.0 hematocrit of 39.0. MCV is 86.7. Platelet count is elevated at 437,000. Sodium was 139 with a potassium of 2.9. Chloride is 11 with a bicarbonate 25. Anion gap is 15.9. BUN is 17 with a creatinine of 0.9. Glucose is 86. Calcium is 9.3 with a magnesium of 2.0. Total bilirubin is 0.5. AST is elevated at 102 with an ALT of 75. Alk phosphatase normal at 75. CK-MB fraction is elevated at 5.8. Troponin I however is normal at less than 0.017. Total protein is 8.8. HCG was negative. Urinalysis is positive for amphetamines and methamphetamines. Blood alcohol is 0.00. Plan we'll give her a potassium chloride supplement of 10 mg IV over the next half hour. Departure - Departure Time of Disposition: 19:15 Disposition: Home, Self-Care 01 Condition: Fair Clinical Impression: Methamphetamine intoxication - Discharge Information *PRESCRIPTION DRUG MONITORING PROGRAM REVIEWED*: No *COPY OF PRESCRIPTION DRUG MONITORING REPORT IN PATIENT AIDAN: No Instructions: Finding Treatment for Addiction, Stimulant Use Disorder- Methamphetamines Referrals: PCP,Not In Area [Primary Care Provider] - Additional Instructions: Evaluation the emergency room today in regards to adverse effects experienced after using intravenous methamphetamines. After use today you felt quite uneasy and agitated and restless with an elevated heart rate. Lab work shows no evidence of heart attack. Heart tracing suggests possible old heart attack in the right coronary distribution or inferior portion of your heart. This may have been caused by previous methamphetamine use. The only other finding today was a low serum potassium level from not eating for the last day and a half. You 're given a dosage of potassium supplement while in the ED and your volume depletion was corrected with intravenous fluids. Suggest trying to eat a regular meal when you get back home. Of course no further use of methamphetamines is encouraged. Suggest use a counseling and perhaps treatment once again. - My Orders Last 24 Hours: My Active Orders 05/18/18 16:37 EKG Documentation Completion [RC] STAT 05/18/18 16:38 Oxygen Therapy [RC] ASDIRECTED 05/18/18 16:45 Dextrose 5%-0.9% NaCl [Dextrose 5%-Normal Saline] 1,000 ml IV ASDIRECTED 05/18/18 17:15 Insert [place]regon Catheter [Insert Urinary Catheter] [OM.PC] Stat Urinary Catheter Assessment [RC] ASDIRECTED 05/18/18 17:20 DRUG SCREEN, URINE [URCHEM] Stat - Assessment/Plan Last 24 Hours: My Active Orders 05/18/18 16:37 EKG Documentation Completion [RC] STAT 05/18/18 16:38 Oxygen Therapy [RC] ASDIRECTED 05/18/18 16:45 Dextrose 5%-0.9% NaCl [Dextrose 5%-Normal Saline] 1,000 ml IV ASDIRECTED 05/18/18 17:15 Insert [place]regon Catheter [Insert Urinary Catheter] [OM.PC] Stat Urinary Catheter Assessment [RC] ASDIRECTED 05/18/18 17:20 DRUG SCREEN, URINE [URCHEM] Stat
[2018-05-18] MEDS ORDERED: LORazepam 2 MG/ML SDV IVPUSH ONE (16:37)
[2018-05-18] MEDS ORDERED: Dextrose 5%-0.9% NaCl 1,000 ML IV SCH (16:45)
[2018-05-18] MEDS ORDERED: Potassium Chloride 10 MEQ in Premix Bag 1 BAG IV ONE (18:01)
[2018-05-18 18:23] VITALS: BP 98/70
== END 2018-05-18 22:38 | disposition home or self-care (01) ==
LOC: JD.ED 15:53
DX: F15.129 Other stimulant abuse with intoxication, unspecified (principal); F17.210 Nicotine dependence, cigarettes, uncomplicated; Z79.899 Other long term (current) drug therapy; Z87.440 Personal history of urinary (tract) infections
CPT/HCPCS: 36415; 80053; 80306; 82553; 83735; 84484; 84703; 85007; 85027; 93005; 96361; 96374; 96375; 99285; G0480; J2060; J3480; J7042; 93010; 99284-25

== ENCOUNTER 2020-12-27 09:15 | Emergency (ER) | payer OTHER ==
[2020-12-27 09:24] VITALS: BP 141/83; PULSE 113
--- NOTE | 2020-12-27 09:57 | EDM.PDOC ---
ED HPI GENERAL MEDICAL PROBLEM - General Chief Complaint: Skin Complaint Stated Complaint: L ARM INJURY Time Seen by Provider: 12/27/20 09:48 Source of Information: Reports: Patient, RN Notes Reviewed - History of Present Illness INITIAL COMMENTS - FREE TEXT/NARRATIVE: 40 yr old female injected meth L arm early this morning, missed the vein, no has localized swelling, bruising, discomfort. 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 History of depression and suicide attempt pulled from records from a hosptial stay. Dermatologic History: Reports: Eczema - Infectious Disease History Other Infectious Disease History: unable to evaluate - Past Surgical History GI Surgical History: Reports: Appendectomy, Cholecystectomy Female Surgical History: Reports: Section Social & Family History - Tobacco Use Tobacco Use Status *Q: Current Every Day Tobacco User Years of Tobacco use: 29 Packs/Tins Daily: 1 - Caffeine Use Caffeine Use: Reports: Soda - Recreational Drug Use Recreational Drug Use: Yes Recreational Drug Type: Reports: Methamphetamine - Living Situation & Occupation Living situation: Reports: Occupation: Unemployed ED ROS GENERAL - Review of Systems Review Of Systems: See Below Constitutional: Denies: Fever, Chills HEENT: Reports: No Symptoms Respiratory: Reports: No Symptoms Cardiovascular: Reports: No Symptoms GI/Abdominal: Reports: No Symptoms Musculoskeletal: Reports: Arm Pain Skin: Reports: Bruising, Erythema Neurological: Reports: No Symptoms ED EXAM, SKIN/RASH Exam: See Below General Appearance: Alert, Anxious Head: Atraumatic Neck: Supple Respiratory/Chest: No Respiratory Distress Cardiovascular: Tachycardia Extremities: Redness (small area of erythema, bruising, tenderness volar L forearm just distal to elbow, no palpable mass at this time, no drainage, no proximal streaking. ) Course - Vital Signs Last Recorded V/S: Last Vital Signs Temp 96.7 F L 12/27/20 09:21 Pulse 113 H 12/27/20 09:21 Resp 18 12/27/20 09:21 BP 141/83 H 12/27/20 09:21 Pulse Ox 96 12/27/20 09:21 Departure - Departure Time of Disposition: 09:56 Disposition: Home, Self-Care 01 Condition: Fair Clinical Impression: Cellulitis Qualifiers: Site of cellulitis: extremity Site of cellulitis of extremity: upper extremity Laterality: left Qualified Code(s): L03.114 - Cellulitis of left upper limb - Discharge Information Prescriptions: cephALEXin [Cephalexin] 500 mg PO TID #20 capsule Instructions: Cellulitis, Adult, [id number] Referrals: PCP,None [Primary Care Provider] - Forms: ED Department Discharge Additional Instructions: Cephalexin 500 mg 3 times daily for 1 week or until gone. Prescription has been sent to [facility]. Follow up clinic as needed. Return to ED as needed if symptoms worsening in any way. Sepsis Event Note (ED) - Evaluation Sepsis Screening Result: No Definite Risk - Focused Exam Vital Signs: Vital Signs Temp Pulse Resp BP Pulse Ox 12/27/20 09:21 96.7 F L 113 H 18 141/83 H 96
== END 2020-12-27 10:07 | disposition home or self-care (01) ==
LOC: JD.ED 09:15
DX: L03.114 Cellulitis of left upper limb (principal); Z72.0 Tobacco use
CPT/HCPCS: 99283